=== PATIENT | female | born 1935 | race Caucasian/White ===

== ENCOUNTER 2019-11-07 07:49 | Day surgery (SDC) | payer MEDICARE ==
[~2019-11-07] VITALS: Ht 167.6 cm; Wt 45.9 kg
[2019-11-07 08:09] VITALS: BP 132/70
[2019-11-07] MEDS ORDERED: heparin sodium, porcine/PF 100unit/ml 5ML syringe ONE (08:17)
[2019-11-07] MEDS ORDERED: LIDOcaine 1%/PF 5ML 10 MG/ML VIAL ONE (08:18)
[2019-11-07] MEDS ORDERED: normal saline 1000ml 1,000 ML IV PRN (08:20)
[2019-11-07] MEDS ORDERED: lovenox SUBCUT (08:26)
[2019-11-07] MEDS ORDERED: midazolam 2 mg/2 ml injection ONE (08:27)
[2019-11-07] MEDS ORDERED: fentaNYL/PF 50MCG/1 ML 2ML syringe ONE (08:28)
[2019-11-07 10:02] VITALS: BP 112/67
[2019-11-07 10:15] VITALS: BP 108/60
[2019-11-07 10:30] VITALS: BP 98/51
[2019-11-07 10:45] VITALS: BP 101/53
[2019-11-07 10:55] VITALS: BP 105/58
== END 2019-11-07 11:10 | disposition home or self-care (01) ==
LOC: SSTAY O 07:49
PROVIDERS: ATTEND Radiology Vascular & Interventional Radiology
DX: C56.9 Malignant neoplasm of unspecified ovary (principal); R18.0 Malignant ascites; Z86.711 Personal history of pulmonary embolism; Z79.01 Long term (current) use of anticoagulants; Z98.890 Other specified postprocedural states; Z79.899 Other long term (current) drug therapy; Z20.828 Contact with and (suspected) exposure to other viral communicable diseases
CPT/HCPCS: 36561; 76937; 77001; 87635; 99152; 99153; C1769; C1788; C1894; C9803; J1642; J2250; J3010

== ENCOUNTER 2019-11-18 07:56 | Day surgery (SDC) | payer MEDICARE ==
[~2019-11-18] VITALS: Ht 160 cm; Wt 48.1 kg
[2019-11-18] VITALS (19 sets, daily range): BP systolic 120–158; BP diastolic 58–111
[~2019-11-18 07:56] MED LIST: lovenox SUBCUT
[2019-11-18] MEDS ORDERED: albumin 25% 100mL bottle x 1 IV PRN (08:35)
[2019-11-18] MEDS ORDERED: LIDO30CR23 TOP (08:58)
[2019-11-18] MEDS ORDERED: APIX5TAB3 PO (08:58)
[2019-11-18] MEDS ORDERED: ONDA8TAB65 PO (08:58)
[2019-11-18] MEDS ORDERED: TRAM50TA2 PO (08:58)
[2019-11-18] MEDS ORDERED: PROC-8 PO (08:58)
[2019-11-18 11:49] LABS: GLUCOSE,BODY FLUID 85 MG/DL; LDH,BODY FLUID 403 U/L; TOTAL PROTEIN,BODY FLUID 3.7 G/DL
[2019-11-18 13:33] LABS: LYMPHOCYTES,BODY FLUID 50 %; MONOCYTES,BODY FLUID 33 %; NEUTROPHILS,BODY FLUID 17 %
[2019-11-18 13:36] LABS: BF RBC COUNT 4675 /CU MM; BF WBC COUNT 315 /CU MM (0-1000); BFAPPEAR HAZY; BFCOLOR YELLOW; BFVOLUME 45 ML
[2019-11-18 13:37] LABS: BF MESOTHELIAL CELLS FEW
[2019-11-18] MEDS ORDERED: heparin sodium, porcine/PF 100unit/ml 5ML syringe IV SCH (13:50)
--- NOTE | 2019-11-18 13:51 | NUR ---
PICC line nurse paged to access pt's port-[email or web address].
== END 2019-11-18 14:45 | disposition home or self-care (01) ==
LOC: SSTAY O 07:56
PROVIDERS: ATTEND Radiology Vascular & Interventional Radiology
DX: C56.9 Malignant neoplasm of unspecified ovary (principal); R18.0 Malignant ascites; G89.29 Other chronic pain; Z86.711 Personal history of pulmonary embolism; Z79.01 Long term (current) use of anticoagulants; Z79.899 Other long term (current) drug therapy; Z98.890 Other specified postprocedural states
CPT/HCPCS: 49083; 82945; 83615; 84157; 87070; 89051; J1642; P9047

== ENCOUNTER 2019-12-09 06:30 | Day surgery (SDC) | payer MEDICARE ==
[~2019-12-09] VITALS: Ht 160 cm; Wt 48.1 kg
[~2019-12-09 06:30] MED LIST changes: +APIX5TAB3 PO; +LIDO30CR23 TOP; +ONDA8TAB65 PO; +PROC-8 PO; +TRAM50TA2 PO; -lovenox SUBCUT
[2019-12-09] MEDS ORDERED: albumin 25% 100mL bottle x 1 IV PRN (06:55)
[2019-12-09 07:14] VITALS: BP 122/68
== END 2019-12-09 08:40 | disposition home or self-care (01) ==
LOC: SSTAY O 06:30
PROVIDERS: ATTEND Radiology Diagnostic Radiology
DX: C56.9 Malignant neoplasm of unspecified ovary (principal); R18.0 Malignant ascites; R14.0 Abdominal distension (gaseous); Z79.01 Long term (current) use of anticoagulants; Z86.711 Personal history of pulmonary embolism; Z98.890 Other specified postprocedural states; Z79.899 Other long term (current) drug therapy
CPT/HCPCS: 76705